=== PATIENT | male | born 1990 | race Caucasian/White ===

== ENCOUNTER 2017-07-31 04:33 | Emergency (ER) | payer SELFPAY ==
[~2017-07-31] VITALS: Ht 172.7 cm; Wt 60.3 kg
--- NOTE | 2017-07-31 04:33 | NUR ---
BBRA [id number]; GROIN PAIN FROM GROUND LEVEL FALL STATING "I WAS WALKING AND MY LEG GAVE OUT AND SO I FELL ON THE GROUND. HAD PREVIOUS SURGERY TO HAVE PLATE INSERTED AND STATES "I FEEL LIKE SOMETHING ISN'T RIGHT". LISHA TANG.
--- NOTE | 2017-07-31 04:33 | NUR ---
Moreno landers in ED - 07/31/17 at 0447 by VANI KEL [id number]; GI JOVELF. VSS NAD WILL CONTINUE TO MONITOR FOR ANY CHANGES DURING THE SHIFT.
--- NOTE | 2017-07-31 04:45 | NUR ---
ER MD MOTTA AT BEDSIDE
[2017-07-31] MEDS ORDERED: IBUPROFEN 400 MG TABLET ONE (06:12)
[2017-07-31 06:16] VITALS: BP 112/59
--- NOTE | 2017-07-31 06:16 | NUR ---
pt refused medication. er made aware.
[2017-07-31] MEDS ORDERED: IBUPROFEN 400 MG TABLET PO ONE (06:30)
== END 2017-07-31 06:18 | disposition home or self-care (01) ==
LOC: ER 04:37
DX: S83.91XA Sprain of unspecified site of right knee, initial encounter (principal); W01.0XXA Fall on same level from slipping, tripping and stumbling without subsequent striking against object, initial encounter; Y93.89 Activity, other specified; Y92.89 Other specified places as the place of occurrence of the external cause; Y99.8 Other external cause status
CPT/HCPCS: 73551; 73564; 99284; A4606; Z7610; 73552